=== PATIENT | female | born 1985 | race Caucasian/White ===

== ENCOUNTER → 2018-11-08 | Outpatient (CLI) | payer OTHER ==
[~2018-11-08] MED LIST: HYDR1TAB94 PO; IBUP800; IBUP800 PO; NIFE60ER PO; Norco 5-325 Ta1 EACH PO; VICODIN 5 MG PO; Verotin-Gr Cap1 EACH PO
== END | disposition home or self-care (01) ==
LOC: LAB 17:39 → LAB SHORT 17:39
DX: R30.0 Dysuria (principal)
CPT/HCPCS: 87086

== ENCOUNTER → 2018-11-24 | Outpatient (CLI) | payer OTHER | END | disposition home or self-care (01) | LOC: LAB SHORT 16:31 → LAB 16:31 | DX: R30.0 Dysuria (principal) | CPT/HCPCS: 87086 ==

== ENCOUNTER → 2018-12-08 | Outpatient (CLI) | payer OTHER | END | disposition home or self-care (01) | LOC: LAB SHORT 13:53 → LAB 13:53 | DX: Z34.83 Encounter for supervision of other normal pregnancy, third trimester (principal); Z3A.36 36 weeks gestation of pregnancy | CPT/HCPCS: 87081; 87653 ==

== ENCOUNTER → 2018-12-16 | Outpatient (CLI) | payer OTHER | END | disposition home or self-care (01) | LOC: LAB 11:20 → LAB SHORT 11:20 | DX: R30.0 Dysuria (principal) | CPT/HCPCS: 87086 ==

== ENCOUNTER 2018-12-21 12:01 | Inpatient (IN) | payer OTHER ==
[~2018-12-21] VITALS: Ht 180.3 cm; Wt 112.0 kg
[2018-12-21 10:54] LABS: BASOPHILS ABSOLUTE AUTO 0.02 K/mm3 (0.00-0.23); BASOPHILS PERCENT AUTO 0 % (0-2); EOSINOPHILS ABSOLUTE AUTO 0.04 K/mm3 (0.00-0.68); EOSINOPHILS PERCENT AUTO 1 % (0-6); Hematocrit 37.5 % (33.0-51.0); Hemoglobin 12.7 g/dL (11.5-16.0); IMMATURE GRAN ABSOLUTE AUTO 0.05 K/mm3 (0.00-0.10); IMMATURE GRAN PERCENT AUTO 1 % (0-1); LYMPHOCYTES ABSOLUTE AUTO 2.11 K/mm3 (0.84-5.20); LYMPHOCYTES PERCENT AUTO 27 % (21-46); MONOCYTES ABSOLUTE AUTO 0.62 K/mm3 (0.16-1.47); MONOCYTES PERCENT AUTO 8 % (4-13); Mean Corpuscular HGB 30.6 pg (26.0-34.0); Mean Corpuscular HGB Conc 33.9 g/dL (31.5-36.5); Mean Corpuscular Volume 90 fL (80-100); Mean Platelet Volume 10.9 fL (9.1-12.4); NEUTROPHILS ABSOLUTE AUTO 4.86 K/mm3 (1.96-9.15); NEUTROPHILS PERCENT AUTO 63 % (41-73); Platelet Count 142 K/mm3 (150-400); RDW Coefficient Variation 14.2 % (11.7-14.2); RDW Standard Deviation 47.3 fL (35.1-46.3); Red Blood Cell Count 4.15 M/mm3 (3.80-5.20)
[~2018-12-21 12:01] MED LIST changes: -HYDR1TAB94 PO
--- NOTE | 2018-12-23 08:39 | NUR ---
12/23/18 0839 Grace Agudelo VIABLE FEMALE, BORN AT 1819. VAC X3 WITH 2 POP OFFS. TO NSY WITH MARIA E. CORD BLOOD GIVEN TO HER WELL. CORD GASSES GIVEN TO RT GRACE.
[2018-12-23 08:44] LABS: PCO2 Cord - Arterial 64.8 mmHg (40-50); pH Cord - Arterial 7.21 (7.28-7.35)
[2018-12-23 08:45] LABS: PO2 Cord - Arterial < 16 mmHg (16-20)
[2018-12-23 08:46] LABS: PCO2 Cord - Venous 57.7 mmHg (40-50); pH Umbilical Cord - Venous 7.26 (7.26-7.35)
[2018-12-23 08:48] LABS: PO2 Cord - Venous < 28 mmHg (28-32)
[2018-12-24 05:51] LABS: BASOPHILS ABSOLUTE AUTO 0.03 K/mm3 (0.00-0.23); BASOPHILS PERCENT AUTO 0 % (0-2); EOSINOPHILS ABSOLUTE AUTO 0.04 K/mm3 (0.00-0.68); EOSINOPHILS PERCENT AUTO 0 % (0-6); Hematocrit 32.8 % (33.0-51.0); IMMATURE GRAN ABSOLUTE AUTO 0.07 K/mm3 (0.00-0.10); IMMATURE GRAN PERCENT AUTO 1 % (0-1); LYMPHOCYTES ABSOLUTE AUTO 3.88 K/mm3 (0.84-5.20); LYMPHOCYTES PERCENT AUTO 35 % (21-46); MONOCYTES ABSOLUTE AUTO 0.96 K/mm3 (0.16-1.47); MONOCYTES PERCENT AUTO 9 % (4-13); Mean Corpuscular HGB 30.4 pg (26.0-34.0); Mean Corpuscular HGB Conc 33.5 g/dL (31.5-36.5); Mean Corpuscular Volume 91 fL (80-100); Mean Platelet Volume 11.5 fL (9.1-12.4); NEUTROPHILS ABSOLUTE AUTO 6.18 K/mm3 (1.96-9.15); NEUTROPHILS PERCENT AUTO 55 % (41-73); Platelet Count 145 K/mm3 (150-400); RDW Coefficient Variation 14.4 % (11.7-14.2); RDW Standard Deviation 46.7 fL (35.1-46.3); Red Blood Cell Count 3.62 M/mm3 (3.80-5.20); White Blood Cell Count 11.16 K/mm3 (4.00-11.30)
--- NOTE | 2018-12-24 15:53 | NUR ---
ASSUMED CARE RECIEVED REPORT FROM HEATHER MARTINEZ, ASSUMED CARE OF PT AT 1350
--- NOTE | 2018-12-24 22:29 | NUR ---
PER PT REQUEST RN NOT TO RETURN TO ROOM UNLESS PATIENT CALLS UNTIL AFTER 0500AM - PER PT RN TO ASSUME PAIN IS WNL "UNLESS I CALL YOU TO ROOM" DENIED SNACK "I HAVE CRACKERS HERE IF I NEED THEM" SUPPORT PERSON AT SIDE
--- NOTE | 2018-12-25 00:23 | NUR ---
PT HAS NOT CALLED NOT ROUNDING RELATED TO PATIENT WISH'S
--- NOTE | 2018-12-25 02:25 | NUR ---
NOT ROUNDING R/T PATIENT REQUEST TO NOT COME IN UNTIL SHE CALLS
--- NOTE | 2018-12-25 07:00 | NUR ---
REPORT TO BAUDILIO CONTRERAS RN AND ERICH SINHA RN
[2018-12-25] MEDS ORDERED: HYDR1TAB94 PO (11:15)
--- NOTE | 2018-12-25 11:24 | NUR ---
PPFU PATIENT REFUSES POST FOLLOW UP APPOINTMENT.VERBALIZES UNDERSTANDING OF WHAT THE FOLLOW UP ENTAILS. PT STATES SHE WILL CALL HER PROVIDER WITH ANY QUESTIONS OR CONCERNS.
== END 2018-12-25 11:50 | disposition home or self-care (01) | DRG 788 ==
LOC: BC 12-23 06:03
PROVIDERS: ADMIT Obstetrics & Gynecology
PROC: 10D00Z1 Extraction of Products of Conception, Low, Open Approach (ICD-10-PCS; principal; 2018-12-23 07:30)
DX: O34.211 Maternal care for low transverse scar from previous cesarean delivery (principal); Z3A.38 38 weeks gestation of pregnancy; Z37.0 Single live birth
CPT/HCPCS: 36415; 82803; 85025; 86850; 86900; 86901; A9270-GY; J0694; J1100; J1885; J2370; J2405; J2590; J2704; J2765; J3010; J7120

== ENCOUNTER 2024-06-09 06:38 | Inpatient (IN) | payer OTHER ==
[2024-06-09] VITALS (18 sets, daily range): BP systolic 116–146; BP diastolic 77–95
[~2024-06-09] VITALS: Ht 177.8 cm; Wt 104.7 kg
[~2024-06-09 06:38] MED LIST changes: +ELDERBERRY350 MG PO; +HYDR1TAB94 PO; +VITAMIN C500 M3 PO; +VITAMIN D5000 UNIT PO
[2024-06-09] MEDS ORDERED: Lactated Ringer's 1,000 ML IV SCH ×2 (07:20→10:25)
[2024-06-09] MEDS ORDERED: CeFAZolin Sodium 2,000 MG in NS 100 ML IV SCH (07:20)
[2024-06-09] MEDS ORDERED: ENSKYCE 28 TAB1 EACH PO (08:08)
[2024-06-09] MEDS ORDERED: Bupivacaine 0.5% W/EPI 1:200000 SDV 30 ML Vial ONE (08:30)
--- NOTE | 2024-06-09 08:34 | NUR ---
History, Chart, Medications and Allergies reviewed before start of procedure. Patient up to Ambulate independently. Gait steady. Pre-Op teaching done. Pt verbalizes understanding. Patient confirms NPO status and agrees with scheduled surgery. Patient reports completing Chlorhexadine shower X2 prior to admission to hospital. Surgical site prepped with 2% Chlorhexidine cloth wipe. Lungs clear T/O to Auscultation.
[2024-06-09] MEDS ORDERED: propofoL 20 ML IV ONE (08:39)
[2024-06-09] MEDS ORDERED: FentaNYL Citrate 50 MCG/ML 2 ML Injection ONE ×3 (08:39→09:54)
[2024-06-09] MEDS ORDERED: Rocuronium Bromide 10 MG/ML 5ML Injection IV ONE ×2 (08:39→09:08)
[2024-06-09] MEDS ORDERED: Dexamethasone Sod Phos 10 MG/ML 1ML VIAL ONE (08:50)
[2024-06-09] MEDS ORDERED: Ondansetron HCl 2 MG / ML 2ML Vial IV PRN ×2 (09:20→10:25)
[2024-06-09] MEDS ORDERED: Ondansetron HCl 2 MG / ML 2ML Vial ONE (09:33)
[2024-06-09] MEDS ORDERED: Sugammadex Sodium 200 MG/2ML SDV (100 MG/ML) ONE (09:34)
[2024-06-09] MEDS ORDERED: Glycopyrrolate 0.2 MG/ML 5ML VIAL ONE (10:01)
[2024-06-09] MEDS ORDERED: Simethicone 80 MG Chew PO PRN (10:20)
[2024-06-09] MEDS ORDERED: HYDROmorphone HCl 0.5 MG/0.5 ML SYR ONE ×4 (10:24→11:03)
[2024-06-09] MEDS ORDERED: HYDROcodone 5-APAP 325 TAB PO PRN (10:25)
[2024-06-09] MEDS ORDERED: Acetaminophen 325 MG TABLET PO PRN (10:25)
[2024-06-09] MEDS ORDERED: Estradiol 0.1 MG/24 HR Patch TOP SCH (10:25)
[2024-06-09] MEDS ORDERED: FentaNYL Citrate 50 MCG/ML 2 ML Injection IV PRN (10:25)
[2024-06-09] MEDS ORDERED: DiphenhydrAMINE HCL 25 MG Cap PO PRN (10:25)
[2024-06-09] MEDS ORDERED: Morphine Sulfate 4 MG/1 ML Injection ONE (10:36)
[2024-06-09] MEDS ORDERED: Metoclopramide HCl 5MG / ML 2ML Vial ONE (10:36)
[2024-06-09] MEDS ORDERED: Ketorolac Tromethamine 30mg Vial ONE (10:49)
--- NOTE | 2024-06-09 11:25 | NUR ---
ARRIVAL NOTE PT TO ROOM 214 FROM PACU. VSS, PT AWAKE AND RESPONSIVE, PT REPORTS 8/10 PAIN BUT IS RESTING PEACEFULLY AND DROWSY. HEATING PAD APPLIED TO ABD FOR COMFORT, ALEN PAD IN PLACE W/ SCANT BLEEDING. DRESSING TO LOWER ABD C/D/I. PAS ON. CALL LIGHT IN REACH.
[2024-06-09] MEDS ORDERED: Ketorolac Tromethamine 30mg Vial IV SCH (12:00)
--- NOTE | 2024-06-09 19:45 | NUR ---
SHIFT SUMMARY PT IS POD0 FOR TOTAL ABD LAP HYSTER. AQUACEL TO LOWER ABD C/D/I. ABD BINDER IN PLACE FOR COMFORT. PT TOLERATING PO FLUIDS AND SMALL AMNT OF REG DIET. SOTO IN PLACE DRAINING YELLOW URINE. PT AMBULATING SBA. MODERATE VAG BLEEDING. VSS. PAIN MANAGED W/ PAIN MEDS PER EMAR, BINDER, HEATING PAD. REPORT TO NOC NURSE, CALL LIGHT IN REACH.
[2024-06-10 04:13] VITALS: BP 118/75
[2024-06-10 04:46] LABS: BASOPHILS ABSOLUTE AUTO 0.01 K/mm3 (0.00-0.23); BASOPHILS PERCENT AUTO 0 % (0-2); EOSINOPHILS PERCENT AUTO 0 % (0-6); Hematocrit 30.6 % (33.0-51.0); Hemoglobin 10.4 g/dL (11.5-16.0); IMMATURE GRAN ABSOLUTE AUTO 0.03 K/mm3 (0.00-0.10); IMMATURE GRAN PERCENT AUTO 0 % (0-1); LYMPHOCYTES ABSOLUTE AUTO 2.45 K/mm3 (0.84-5.20); LYMPHOCYTES PERCENT AUTO 26 % (21-46); MONOCYTES ABSOLUTE AUTO 1.08 K/mm3 (0.16-1.47); MONOCYTES PERCENT AUTO 12 % (4-13); Mean Corpuscular HGB 30.6 pg (26.0-34.0); Mean Corpuscular Volume 90 fL (80-100); Mean Platelet Volume 10.9 fL (9.1-12.4); NEUTROPHILS PERCENT AUTO 62 % (41-73); Platelet Count 205 K/mm3 (150-400); RDW Coefficient Variation 13.5 % (11.7-14.2); RDW Standard Deviation 44.4 fL (35.1-46.3); White Blood Cell Count 9.27 K/mm3 (4.00-11.30)
--- NOTE | 2024-06-10 06:12 | NUR ---
[place] SUMMARY POD #1 S/P LAURI. AQUACEL TO ABD INCISION INTACT, MODERATE AMOUNT OF INCREASED SS EXUDATE/SHADOWING NOTED DURING SHIFT. PT IS TOLERATING SMALL AMOUNT OF PO INTAKE. ENCOURAGED TO INCREASE PO FLUIDS JOHN. IVF INFUSING PER ORDERS. AMBULATING IN ROOM AND HALLWAY X1. PAIN MANAGED PER EMAR. PT CURRENTLY RESTING IN BED WITH FRIEND ATTENTIVE AT BEDSIDE. PLAN FOR POSSIBLE D/C HOME TODAY. WILL GIVE REPORT TO ONCOMING RN.
[2024-06-10 07:23] VITALS: BP 126/80
[2024-06-10] MEDS ORDERED: Ibuprofen 400 MG Tab PO PRN (08:00)
[2024-06-10] MEDS ORDERED: HYDR1TAB94 PO (13:01)
[2024-06-10] MEDS ORDERED: IBU800 MG PO (13:02)
[2024-06-10] MEDS ORDERED: ESTRADIOL PO (13:03)
--- NOTE | 2024-06-10 14:31 | NUR ---
DISCHARGE: PT IS VOIDING, AMBULATING. SURGICAL SITES WNL, PAIN MANAGED. DR LYNN IN ROOM AT ABOUT 1200 AND PT OK FOR DC. PACKET PRINTED AND PT EDUCATED. PT VERBALIZED UNDERSTANDING. PT GIVEN SCRIPT FROM DR. LYNN. PT LEFT UNIT AT ABOUT 1310.
== END 2024-06-10 13:23 | disposition home or self-care (01) | DRG 983 ==
LOC: MEDS 06:38 → PRE IP 08:30 → SURS 11:13
PROVIDERS: ADMIT Obstetrics & Gynecology
PROC: 0UT70ZZ Resection of Bilateral Fallopian Tubes, Open Approach (ICD-10-PCS; 2024-06-09)
PROC: 0UT20ZZ Resection of Bilateral Ovaries, Open Approach (ICD-10-PCS; 2024-06-09)
PROC: 0UT90ZZ Resection of Uterus, Open Approach (ICD-10-PCS; principal; 2024-06-09 08:30)
DX: N99.4 Postprocedural pelvic peritoneal adhesions (principal); N92.0 Excessive and frequent menstruation with regular cycle; Z87.891 Personal history of nicotine dependence
CPT/HCPCS: 36415; 85025; 88307; 94762; A9270; J0690; J1100; J1171; J1885; J2270; J2405; J2704; J2765; J3010; J7120